=== PATIENT | female | born 1965 | race Caucasian/White ===

== ENCOUNTER → 2018-09-28 | Outpatient (CLI) | payer MEDICARE, OTHER ==
--- NOTE | 2018-09-30 22:44 | MR ---
EXAMINATION TYPE: MR brain and iac wo/w con DATE OF EXAM: 09/28/2018 COMPARISON: NONE HISTORY: Migraine without aura, Vertigo, Hx of Cerebral hemorrhage in 2001, lump behind right ear TECHNIQUE: Multiplanar, multisequence images of the brain and brainstem and including internal auditory canals a re all performed without and with IV contrast, utilizing 9.5 mL intravenous Gadavist . FINDINGS: Diffusion weighted images demonstrate no evidence of a recent infarct or other diffusion ab normality. There is no worrisome extra-axial fluid collection. The ventricular system and cisternal spaces are normal in size and appearance. The brain volume is age appropriate. A few scattered foci T2 hyperintensity is seen throughout the white matter bilaterally. Approximately 10-15 small scatter ed lesions are seen. For reference roughly 5 lesions are seen in the bilateral frontal lobes measurin g up to 4 mm in size axial image 20. Lesions are nonspecific in appearance and distribution. Midline structures demonstrate normal morphology. The craniocervical junction appears within normal limits. Post contrast images demonstrate no abnormal enhancement. The dural venous sinuses appear pa tent. The visualized sinuses are clear and the globes are intact. Small round subcentimeter T2 hyperi ntense lesions with possible enhancement bilateral parotid glands favor benign intraparotid lymph nod es. In the posterior scalp bilaterally right greater than left posterior to the uterus there are well -defined subcentimeter nonenhancing T2 hyperintense lesions also T1 and hyperintensity favoring multi focal soft tissue lipomas. There is increased fluid signal right mastoid air cells identified. Vestibulocochlear complexes are s ymmetric and felt within normal limits. No suspicious enhancing cerebellopontine angle mass is identi fied bilaterally. Motion artifact degradation is noted making evaluation slightly suboptimal. IMPRESSION: 1. Moderate increased fluid signal right mastoid air cells raises concern for mastoiditis, correlate clinically. 2. Multiple subcentimeter well-defined oval shaped lesions in the scalp right greater than left favor ing benign etiology such as soft tissue lipomas. 3. Mild chronic small vessel ischemic change.
== END | disposition home or self-care (01) ==
LOC: RADMRIMAIN 16:54
PROVIDERS: ATTEND Psychiatry & Neurology Neurology
DX: I67.82 Cerebral ischemia (principal); L98.9 Disorder of the skin and subcutaneous tissue, unspecified; G43.009 Migraine without aura, not intractable, without status migrainosus
CPT/HCPCS: 70553; A9585